=== PATIENT | female | born 1945 | race Asian ===

== ENCOUNTER 2017-04-02 11:11 | Emergency (ER) | payer OTHER ==
[~2017-04-02] VITALS: Ht 154.9 cm; Wt 59.1 kg
[2017-04-02 11:17] VITALS: Ht 154.9 cm; Wt 59.1 kg
--- NOTE | 2017-04-02 11:17 | ERA ---
ER Documentation Chief Complaint Date/Time DATE: 04/02/17 TIME: 11:16 Chief Complaint Anxious HPI The patient is a 71-year-old female, presenting to the ER because she was very anxious when she was told that she was going home today from a assisted facility. She does not want to speak or participate with my history and physical. Therefore the history and physical are very limited. The history is obtained from the realtime court reporter and medical record Past medical history: Seizure disorder, history of CVA with right hemiparesis, hypertension, diabetes mellitus, depression, dyslipidemia, GERD, anxiety, diabetic neuropathy Past surgical history/social history/review of system: Unable to obtain due to her condition ROS All systems reviewed and are negative except as per history of present illness. Medications Home Meds Active Scripts Gabapentin* (Neurontin*) 300 Mg Capsule, 300 MG PO TID, #30 CAP Prov:CHAPO JOHNSON MD 04/02/17 Allergies Allergies: Coded Allergies: No Known Allergy (Unverified , 09/27/11) PMhx/Soc History of Surgery: No Anesthesia Reaction: No Hx Neurological Disorder: No Hx Respiratory Disorders: Yes (ASTHMA) Hx Cardiac Disorders: Yes (CVA, HTN) Hx Psychiatric Problems: Yes Hx Miscellaneous Medical Probl: No Hx Alcohol Use: No Hx Substance Use: No Hx Tobacco Use: No Physical Exam Vitals Vital Signs Date Time Temp Pulse Resp B/P Pulse Ox O2 Delivery O2 Flow Rate FiO2 04/02/17 15:22 98.1 74 18 168/86 98 04/02/17 13:22 98.1 68 18 134/66 98 04/02/17 11:17 98.1 81 18 171/86 98 Physical Exam Const: No acute distress. Emotional Head: Atraumatic. Eyes: Normal Conjunctiva. ENT: Normal External Ears, Nose and Mouth. Neck: Full range of motion. No meningismus. Resp: Clear to auscultation bilaterally. Cardio: Regular rate and rhythm. Abd: Soft, non distended, normal bowel sounds, non tender. Skin: No petechiae or rashes. Back: No midline or flank tenderness. Ext: No cyanosis, or edema. Neur: Right hemiparalysis, limited Psych: Unable to perform due to her condition Result Diagram: 04/02/17 1145 04/02/17 1145 Results 24 hrs Laboratory Tests Test 04/02/17 11:27 04/02/17 11:45 Bedside Glucose 96mg/dL White Blood Count 9.810^3/ul Red Blood Count 4.4610^6/ul Hemoglobin 14.0g/dl Hematocrit 39.2% Mean Corpuscular Volume 87.9fl Mean Corpuscular Hemoglobin 31.4pg Mean Corpuscular Hemoglobin Concent 35.7g/dl Red Cell Distribution Width 12.0% Platelet Count 02653^3/UL Mean Platelet Volume 9.7fl Neutrophils % 65.8% Lymphocytes % 28.6% Monocytes % 4.6% Eosinophils % 0.2% Basophils % 0.4% Nucleated Red Blood Cells % 0.0/100WBC Neutrophils # 6.510^3/ul Lymphocytes # 2.810^3/ul Monocytes # 0.510^3/ul Eosinophils # 0.010^3/ul Basophils # 0.010^3/ul Nucleated Red Blood Cells # 0.010^3/ul Prothrombin Time 12.7Sec Prothrombin Time Ratio 1.0 INR International Normalized Ratio 0.95 Activated Partial Thromboplast Time 30.3Sec Sodium Level 137mmol/L Potassium Level 4.1mmol/L Chloride Level 93mmol/L Carbon Dioxide Level 26mmol/L Anion Gap 22 Blood Urea Nitrogen 9mg/dl Creatinine 0.53mg/dl Glucose Level 96mg/dl Calcium Level 9.6mg/dl Total Bilirubin 0.3mg/dl Direct Bilirubin 0.00mg/dl Indirect Bilirubin 0.3mg/dl Aspartate Amino Transf (AST/SGOT) 33IU/L Alanine Aminotransferase (ALT/SGPT) 41IU/L Alkaline Phosphatase 51IU/L Troponin I < 0.012ng/ml Total Protein 8.2g/dl Albumin 4.5g/dl Globulin 3.70g/dl Albumin/Globulin Ratio 1.21 Current Medications Medications (Trade) Dose Ordered Sig/Twyla Route PRN Reason Start Time Stop Time Status Last Admin Dose Admin Gabapentin (Neurontin) 300 mg ONCE ONCE PO 04/02/17 13:00 04/02/17 13:01 DC 04/02/17 13:56 Procedures/MDM [place] [id number] Radiology Main Line: [phone] DIAGNOSTIC IMAGING REPORT Patient: EBER CRUZ : 1945 Age: 71 Sex: F MR #: [id number] DOS: 04/02/17 1135 Ordering MD: CHAPO JOHNSON MD Location: E/R Room/Bed: PROCEDURE: XR Chest. CLINICAL INDICATION: Headache TECHNIQUE: Single frontal view of the chest was obtained COMPARISON: None FINDINGS: The cardiac silhouette is within normal limits in size. There are atherosclerotic calcifications of the thoracic aorta. There is prominence of the main pulmonary artery, suggesting pulmonary hypertension. There is mild bibasilar atelectasis. There is no evidence of pulmonary vascular congestion. No pneumothorax, pleural effusion, or parenchymal consolidation is identified. There are degenerative changes of the visualized spine. IMPRESSION: 1. No evidence of acute cardiopulmonary process. 2. Prominence of the main pulmonary artery, suggesting pulmonary hypertension. 3. Mild bibasilar atelectasis. 4. Thoracic aortic atherosclerotic disease. RPTAT: PP Physician Nadya Date Time Electronically viewed and signed by Physician Nadya on 04/02/2017 13: 01 RC/ CC: CHAPO JOHNSON MD [place] [id number] Radiology Main Line: [phone] DIAGNOSTIC IMAGING REPORT Patient: EBER CRUZ : 1945 Age: 71 Sex: F MR #: [id number] DOS: 04/02/17 1135 Ordering MD: CHAPO JOHNSON MD Location: E/R Room/Bed: PROCEDURE: CT Brain without contrast. CLINICAL INDICATION: Right-sided headache, and weakness. TECHNIQUE: A CT of the brain was performed on a multidetector CT scanner utilizing axial sections from the skull base through the vertex without contrast. Images were reviewed on a high-resolution PACS workstation. Exam CTDI = 43.48 mGy and the DLP = 630.20 mGy-cm. One or more of the following dose reduction techniques were used: Automated exposure control Adjustment of the mA and/or kV according to patient size. Use of iterative reconstruction technique. COMPARISON: None available FINDINGS: Mild diffuse cerebral and cerebellar atrophy is present. There is proportionate dilatation of the ventricular system and sulci in a symmetric fashion. There is prominence of the extraaxial spaces secondary to atrophy. There is no evidence of intracranial hemorrhage, mass effect or midline shift. There is age indeterminate lacunar infarct in the posteromedial left thalamus. No abnormal intra-axial or extra-axial fluid collections are seen. The density of the brain is normal and the ivan/white matter differentiation is well preserved. Mild patchy diffuse deep white matter microangiopathic ischemic change is seen. The osseous structures are unremarkable. There is mild mucosal thickening in the right maxillary sinus. The remainder of the paranasal sinuses are clear. Vascular calcifications are identified. IMPRESSION: 1. No intracranial hemorrhage, mass effect or midline shift. 2. Age indeterminate lacunar infarct in the left thalamus. If there is clinical concern for acute infarct, recommend MRI for further evaluation. 3. Mild generalized atrophy. Mild microangiopathic ischemic change. 4. Intracranial atherosclerosis. RPTAT: BB .Amish Grimes MD, MD Date Time Electronically viewed and signed by .Amish Grimes MD, MD on 04/02/2017 12:25 .O/ CC: CHAPO JOHNSON MD EKG: Read by emergency physician Rate/Rhythm: Normal Sinus Rhythm 73 beats/min QRS, ST, T-waves: No ST elevation, no T inversion Impression: Normal EKG MEDICAL MAKING DECISION: The patient is a 71-year-old female, presenting with acute anxiety, chronic diabetic neuropathy pain. She was treated with Neurontin for her pain with good response She was later less anxious and able to communicate. She requested for pain medication for her chronic diabetic neuropathy pain last night however this is a declined. Due to language barrier, she was very upset and unable to sleep last night. She is well now and wants to go home Departure Diagnosis: Primary Impression: Diabetic neuropathy Additional Impression: Anxiety Condition: Good Comments She was discharged with Neurontin, her regular medication I discussed the findings with the patient. I advised the patient to follow-up with the primary physician in about 1-2 days, sooner if needed and return if any concern. CHAPO JOHNSON MD Apr 02, 2017 11:17
[2017-04-02 12:15] LABS: BASOPHILS % 0.4 % (0.0-2.0); EOSINOPHILS % 0.2 % (0.0-7.0); HEMATOCRIT 39.2 % (37.0-47.0); LYMPHOCYTES # 2.8 10^3/ul (0.8-2.9); LYMPHOCYTES % 28.6 % (15.0-51.0); MEAN CORPUSCULAR HEMOGLOBIN 31.4 pg (29.0-33.0); MEAN CORPUSCULAR HGB CONC 35.7 g/dl (32.0-37.0); MEAN CORPUSCULAR VOLUME 87.9 fl (82.0-101.0); MEAN PLATELET VOLUME 9.7 fl (7.4-10.4); MONOCYTE # 0.5 10^3/ul (0.3-0.9); MONOCYTES % 4.6 % (0.0-11.0); NEUTROPHIL # 6.5 10^3/ul (1.6-7.5); NEUTROPHILS % 65.8 % (39.0-77.0); PLATELET COUNT 205 10^3/UL (140-415); RED BLOOD COUNT 4.46 10^6/ul (4.20-5.40); WHITE BLOOD COUNT 9.8 10^3/ul (4.8-10.8)
--- NOTE | 2017-04-02 12:25 | RADRPT ---
PROCEDURE: CT Brain without contrast. CLINICAL INDICATION: Right-sided headache, and weakness. TECHNIQUE: A CT of the brain was performed on a multidetector CT scanner utilizing axial sections from the skull base through the vertex without contrast. Images were reviewed on a high-resolution [employer] workstation. Exam CTDI = 43.48 mGy and the DLP = 630.20 mGy-cm. One or more of the following dose reduction techniques were used: Automated exposure control Adjustment of the mA and/or kV according to patient size. Use of iterative reconstruction technique. COMPARISON: None available FINDINGS: Mild diffuse cerebral and cerebellar atrophy is present. There is proportionate dilatation of the v entricular system and sulci in a symmetric fashion. There is prominence of the extraaxial spaces sec ondary to atrophy. There is no evidence of intracranial hemorrhage, mass effect or midline shift. Th ere is age indeterminate lacunar infarct in the posteromedial left thalamus. No abnormal intra-axial or extra-axial fluid collections are seen. The density of the brain is normal and the ivan/white m atter differentiation is well preserved. Mild patchy diffuse deep white matter microangiopathic isc hemic change is seen. The osseous structures are unremarkable. There is mild mucosal thickening in the right maxillary sinus. The remainder of the paranasal sinuses are clear. Vascular calcificat ions are identified. IMPRESSION: 1. No intracranial hemorrhage, mass effect or midline shift. 2. Age indeterminate lacunar infarct in the left thalamus. If there is clinical concern for acute infarct, recommend MRI for further evaluation. 3. Mild generalized atrophy. Mild microangiopathic ischemic change. 4. Intracranial atherosclerosis. RPTAT: BB .Amish Grimes MD, Date Time Electronically viewed and signed by .Amish Grimes MD, MD on 04/02/2017 12:25 .O/
[2017-04-02 12:31] LABS: INR 0.95; PROTIME 12.7 Sec (12.2-14.2)
[2017-04-02 12:32] LABS: PARTIAL THROMBOPLASTIN TIME 30.3 Sec (25.0-35.0)
[2017-04-02 12:50] LABS: ALANINE AMINOTRANSFERASE 41 IU/L (13-69); ALBUMIN 4.5 g/dl (3.3-4.9); ALBUMIN/GLOBULIN RATIO 1.21; ALKALINE PHOSPHATASE 51 IU/L (42-121); ANION GAP 22 (8-16); ASPARTATE AMINO TRANSFERASE 33 IU/L (15-46); BILIRUBIN,INDIRECT 0.3 mg/dl (0-1.1); BILIRUBIN,TOTAL 0.3 mg/dl (0.2-1.3); BLOOD UREA NITROGEN 9 mg/dl (7-20); CALCIUM 9.6 mg/dl (8.4-10.2); CARBON DIOXIDE 26 mmol/L (21-31); CHLORIDE 93 mmol/L (97-110); CREATININE 0.53 mg/dl (0.44-1.00); GLUCOSE 96 mg/dl (70-220); POTASSIUM 4.1 mmol/L (3.5-5.1); SODIUM 137 mmol/L (135-144); TOTAL PROTEIN 8.2 g/dl (6.1-8.1)
[2017-04-02] MEDS ORDERED: GABAPENTIN 300 MG CAP PO ONE (13:00)
--- NOTE | 2017-04-02 13:01 | RADRPT ---
PROCEDURE: XR Chest. CLINICAL INDICATION: Headache TECHNIQUE: Single frontal view of the chest was obtained COMPARISON: None FINDINGS: The cardiac silhouette is within normal limits in size. There are atherosclerotic calcifications of the thoracic aorta. There is prominence of the main pulmonary artery, suggesting pulmonary hypertension. There is mild bibasilar atelectasis. There is no evidence of pulmonary vascular congestion. No pneumothorax, pleural effusion, or parenchymal consolidation is identified. There are degenerative changes of the visualized spine. IMPRESSION: 1. No evidence of acute cardiopulmonary process. 2. Prominence of the main pulmonary artery, suggesting pulmonary hypertension. 3. Mild bibasilar atelectasis. 4. Thoracic aortic atherosclerotic disease. RPTAT: PP Physician Nadya Date Time Electronically viewed and signed by Physician Nadya on 04/02/2017 13:01 BLAYNE/
[2017-04-02 13:10] LABS: TROPONIN-I < 0.012 ng/ml (0.00-0.12)
[2017-04-02] MEDS ORDERED: GABA300C PO (13:43)
[2017-04-02 15:22] VITALS: BP 168/86; PULSE 74; RESP 18; TEMP 98.1
== END 2017-04-02 15:53 | disposition home or self-care (01) ==
LOC: E/R 11:11
DX: E11.40 Type 2 diabetes mellitus with diabetic neuropathy, unspecified (principal); I10 Essential (primary) hypertension; J45.909 Unspecified asthma, uncomplicated; R51 Headache
CPT/HCPCS: 36415; 70450; 71010; 80053; 82962; 84484; 85025; 85610; 85730; 93005